=== PATIENT | male | born 1960 | race Caucasian/White ===

== ENCOUNTER 2019-02-27 19:26 | Emergency (ER) | payer BC ==
--- OUTSIDE RECORDS SUMMARY | 2019-02-27 19:29 | XMS REPORT ---
:1960 Author Organization eClinicalWorks Care Team Providers Name Role Phone Hai Ramon Provider Role Unavailable Allergies No Known Allergies Problems Problem Type Condition Code Onset Dates Condition Status Assessment Migraine without aura and without G43.009 Active status migrainosus, not intractable Assessment Hyperlipidemia, mixed E78.2 Active Assessment Depression F32.9 Active Assessment Allergic conjunctivitis H10.10 Active Problem Allergic conjunctivitis H10.10 Active Problem Hyperlipidemia, mixed E78.2 Active Problem Depression F32.9 Active Problem Migraine without aura and without G43.009 Active status migrainosus, not intractable Problem Diverticulosis of colon without K57.30 Active diverticulitis Problem Colon polyp K63.5 Active Problem Internal hemorrhoids K64.8 Active Medications Medication Code Code Instructions Start End Status Dosage System Date Date Niacin [facility] 36783685102 250 MG Orally Active 1 tablet Once a day with food Simvastatin [facility] 95302366703 40 MG Orally Active 1 tablet Once a day in the evening Magnesium [facility] 68866459050 500 MG Orally Active 1 tablet Once a day with a meal Aspirin [facility] [address]-90 Active not defined Excedrin Extra [facility] [address]-87 Active not Strength defined CoQ-10 [facility] 16185473212 100 MG Orally Active 1 capsule Once a day with a meal Calcium [facility] 75519700092 500 MG Orally Active not defined Vitamin B2 ND 0 Active not defined Imitrex [facility] 69032379228 100 MG Orally Active 1 tablet Twice a day as needed Simvastatin [facility] 09329210892 80 MG Orally Active 1 tablet Once a day in the evening Results No Known Results Summary Purpose eClinicalWorks Submission
--- OUTSIDE RECORDS SUMMARY | 2019-02-27 19:29 | XMS REPORT ---
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
--- OUTSIDE RECORDS SUMMARY | 2019-02-27 19:29 | XMS REPORT ---
:1960 [facility] Address [address] [place] [address] Dr. Pacheco [address] [place] [address] Care Team Providers Name Role Phone SIERRA DYSON Unavailable Unavailable Problems This patient has no known problems. Allergies, Adverse Reactions, Alerts This patient has no known allergies or adverse reactions. Medications This patient has no known medications. Results Test Description Test Time Test Comments Text Results Atomic Results Result Comments TISSUE EXAM 2019-02-03 13:39:00 Surgical Pathology Report Case: [id number] Authorizing Provider: Sierra Dyson MD Collected: 01/29/2019 1521 Ordering Location: [facility] Received: 02/01/2019 0822 SERVICES Pathologist: Xiomara Jaurez MD Specimens: A) - Polyp, Colon - Left/Descending, Descending Colon Polyp with Cold Snare B) - Polyp, Colon - Cecum, Cecum Polyp C) - Polyp, Colon - Right/Ascending, Ascending Colon Polyp D) - Polyp, Colon - Transverse, Transverse Colon Polyp with Cold Snare E) - Polyp, Colon - Left/Descending, Descending Colon Polyp # 2 A. LEFT DESCENDING COLON POLYP, COLD SNARE POLYPECTOMY: - TUBULAR ADENOMAB. CECUM POLYP, BIOPSY: - FRAGMENTS OF TUBULAR ADENOMA WITH FOCAL HIGH-GRADE DYSPLASIA C. RIGHT ASCENDING COLON POLYP, BIOPSY: - TUBULAR ADENOMA D. TRANSVERSE COLON POLYP, COLD SNARE POLYPECTOMY: - FRAGMENTS OF TUBULAR ADENOMA E. LEFT DESCENDING COLON POLYP #2, BIOPSY: - INFLAMMATORY POLYP WITH SURFACE ULCERATION, GRANULATION TISSUE AND SURFACE HYPERPLASTIC CHANGE - NEGATIVE FOR DYSPLASIA OR VIRAL CYTOPATHIC EFFECT Signing Pathologist Direct Phone Line: [phone] signed by Ximoara Juarez MD on 02/03/2019 at 1:39 PMEndoscopic report reviewed./[id number] s4Fjwnn of colon, unspecified part of colon, unspecified typeA. Descending colon polyp with cold snare. B. Cecum polyp. C. Ascending colon polyp. D. Transverse colon polyp with cold snare. E. Descending colon polyp #2Part A. Received in formalin labeled with the patient's name, accession number and "polyp, colon-left/descending" is a 0.4 cm pink polyp, which is submitted in toto in A1.Part B. Received in formalin labeled with the patient's name, accession number and "polyp, colon-cecum" are two irregular nowak soft tissue fragments each measuring 0.3 cm, which are submitted in toto in B1. Part C. Received in formalin labeled with the patient's name, accession number and "polyp, colon-right/ascending" is a 0.5 cm nowak polyp, which is submitted in toto in C1.Part D. Received in formalin labeled with the patient's name, accession number and "polyp, colon-transverse" is a 0.5 x 0.5 x 0.1 cm nowak polypoid soft tissue, which is bisected and entirely submitted in D1.Part E. Received in formalin labeled with the patient's name, accession number and "polyp, colon-left/descending" is a 0.3 cm nowak soft tissue fragment, which is bisected and entirely submitted in E1. CG/ew Performed
--- OUTSIDE RECORDS SUMMARY | 2019-02-27 19:29 | XMS REPORT ---
:1960 Author Organization eClinicalWorks Care Team Providers Name Role Phone Hai Ramon Provider Role Unavailable Allergies, Adverse Reactions, Alerts Substance Reaction Event Type N.K.D.A. Info Not Available Non Drug Allergy Problems Problem Type Condition Code Onset Dates Condition Status Assessment Hyperlipidemia, mixed E78.2 Active Problem Migraine without aura and without G43.009 Active status migrainosus, not intractable Assessment Adult BMI 30.0-30.9 kg/sq m Z68.30 Active Assessment Depression F32.9 Active Assessment Allergic conjunctivitis H10.10 Active Assessment Migraine without aura and without G43.009 Active status migrainosus, not intractable Problem Diverticulosis of colon without K57.30 Active diverticulitis Problem Depression F32.9 Active Problem Adult BMI 30.0-30.9 kg/sq m Z68.30 Active Problem Colon polyp K63.5 Active Problem Internal hemorrhoids K64.8 Active Problem Allergic conjunctivitis H10.10 Active Problem Hyperlipidemia, mixed E78.2 Active Medications Medication Code Code Instructions Start End Status Dosage System Date Date Vitamin B2 NDC 0 Active not defined Calcium [facility] 94263383277 500 MG Orally Active not defined Simvastatin ND 57231416372 80 MG Orally Active 1 tablet Once a day in the evening Niacin [facility] 56237692483 250 MG Orally Active 1 tablet Once a day with food CoQ-10 [facility] 57977642283 100 MG Orally Active 1 capsule Once a day with a meal Aspirin [facility] [address]-16 [place] not [place] [address]-09 Active not Strength defined Imitrex [facility] 80844598090 100 MG Orally Active 1 tablet Twice a day as needed Magnesium [facility] 60176844365 500 MG Orally Active 1 tablet Once a day with a meal Results No Known Results Summary Purpose eClinicalWorks Submission
--- OUTSIDE RECORDS SUMMARY | 2019-02-27 19:29 | XMS REPORT | Clinical Summary ---
:1960 Author Organization [facility] Address [address] [place] [address] Care Team Providers Name Role Phone Ramon Valles DO Primary Care Provider Allergies No Known Allergies Medications Medication Sig Dispensed Refills Start Date End Date Status simvastatin (ZOCOR) 80 Take 80 mg by 0 Active MG tablet mouth nightly. aspirin 81 MG EC tablet Take 81 mg by 0 Active mouth daily. Active Problems Not on file Encounters Date Type Specialty Care Team Description 01/29/2019 Anesthesia Event Mary Sesay CRNA 01/29/2019 Surgery Sierra Dyson COLONOSCOPY,POLYPECT MD TEQUILA Quintanilla 01/29/2019 Hospital Encounter Sierra Dyson MD 01/28/2019 Hospital Encounter Pre-Admission Sierra Dyson MD after 02/26/2018 Social History Tobacco Use Types Packs/Day Years Used Date Never Smoker Smokeless Tobacco: Never Used Alcohol Use Drinks/Week oz/Week Comments No Alcohol Habits Answer Date Recorded How often do you have a drink containing alcohol? Never 01/28/2019 How many drinks containing alcohol do you have on a typical Not asked day when you are drinking? How often do you have six or more drinks on one occasion? Not asked Sex Assigned at Date Recorded Not on file Job Start Date Occupation Industry Not on file Not on file Not on file Travel History Travel Start Travel End No recent travel history available. Last Filed Vital Signs Vital Sign Reading Time Taken Blood Pressure 110/69 01/29/2019 4:20 PM CDT Pulse 61 01/29/2019 4:20 PM CDT Temperature 36.1 C (97 F) 01/29/2019 3:55 PM CDT Respiratory Rate 20 01/29/2019 4:20 PM CDT Oxygen Saturation 99% 01/29/2019 4:20 PM CDT Inhaled Oxygen Concentration - - Weight 92.5 kg (204 lb) 01/29/2019 12:51 PM CDT Height 179.1 cm (5' 10.5") 01/29/2019 12:51 PM CDT Body Mass Index 28.86 01/29/2019 12:51 PM CDT Plan of Treatment Not on file Procedures Procedure Name Priority Date/Time Associated Diagnosis Comments REPORT OF 01/29/2019 3:56 PROCEDURE - PM CDT ENDOSCOPY URL TISSUE EXAM AP Routine 01/29/2019 3:21 Results for this PM CDT procedure are in the results section. COLONOSCOPY,POLYPE 01/29/2019 3:00 Polyp of colon, CTOMY PM CDT unspecified part of colon, unspecified type after 02/26/2018 Results REPORT OF PROCEDURE - ENDOSCOPY URL (01/29/2019 3:56 PM CDT) Narrative Performed At Tissue Exam (01/29/2019 3:21 PM CDT) Case Report Surgical Pathology Report Case: [id number] [facility] Authorizing Provider:Sierra Dyson MDCollected: 01/29/[address] [place] [address] Ordering Location: [facility] Received: 02/01/2019 0822 SERVICES Pathologist: Xiomara Juarez MD Specimens: A) - Polyp, Colon - Left/Descending, Descending Colon Polyp with Cold Snare B) - Polyp, Colon - Cecum, Cecum Polyp C) - Polyp, Colon - Right/Ascending, Ascending Colon Polyp D) - Polyp, Colon - Transverse, Transverse Colon Polyp with Cold Snare E) - Polyp, Colon - Left/Descending, Descending Colon Polyp # 2 DIAGNOSIS A. LEFT DESCENDING COLON POLYP, COLD SNARE POLYPECTOMY: [facility] - [facility] B. CECUM POLYP, BIOPSY: - FRAGMENTS OF TUBULAR [...] CYTOPATHIC EFFECT Signing Pathologist Direct Phone Line: [phone] COMMENT Endoscopic report reviewed. [facility] CPT Code(s) SJ/ew [facility] [address] x5 [facility] CLINICAL HISTORY Polyp of colon, unspecified [facility] part of colon, unspecified [facility] type SPECIMEN SOURCE A. Descending colon polyp [facility] with cold snare. B. Cecum [facility] polyp. C. Ascending colon polyp. D. Transverse colon polyp with cold snare. E. Descending colon polyp #2 GROSS DESCRIPTION Part A. Received in formalin labeled with the patient's name , accession number and "polyp, colon-left/descending" is a 0.4 cm pink polyp, which is submitted in toto in A1. [facility] Part B. Received in formalin labeled with the patient's name, accession number and "polyp, colon-cecum" are two irregular nowak soft tissue fragments each measuring 0.3 cm, which are submitted in toto in B1. Part C. Received in formalin labeled with the patient's name, accession number and "polyp, colon-right/ascending" is a 0.5 cm nowak polyp, which is submitted in toto in C1. Part D. Received in formalin labeled with the patient's name, accession number and "polyp, colon-transverse" is a 0.5 x 0.5 x 0.1 cm nowak polypoid soft tissue, which is bisected and entirely submitted in D1. Part E. Received in formalin labeled with the patient's name, accession number and "polyp, colon-left/descending" is a 0.3 cm nowak soft tissue fragment, which is bisected and entirely submitted in E1. CG/ew MICROSCOPIC DESCRIPTION Performed [facility] Specimen Tissue - Polyp, Colon - Left/Descending Tissue - Polyp, Colon - Cecum Tissue - Polyp, Colon - Right/Ascending Tissue - Polyp, Colon - Transverse Tissue - Polyp, Colon - Left/Descending Performing Organization Address City/State/Zipcode Phone Number [facility] [address] [place] [address] CENTER after 02/26/2018 Insurance Payer Benefit Plan / Subscriber ID Type Phone Address Group BLUE CROSS/BLUE [employer]BS HMO xxxxxxxxxxxx HMO/POS [phone] [address] [place] [address]
--- OUTSIDE RECORDS SUMMARY | 2019-02-27 19:29 | XMS REPORT ---
[...] Start End Status Dosage System Date Date Aspirin [facility] [address]-80 Active not defined Magnesium [facility] 88947384789 500 MG Orally Active 1 tablet Once a day with a meal Vitamin B2 ND 0 Active not defined CoQ-10 [facility] 95501743143 100 MG Orally Active 1 capsule Once a day with a meal Excedrin Extra [facility] [address]-12 Active not Strength defined Simvastatin ND 54786175623 80 MG Orally Active 1 tablet Once a day in the evening Imitrex ND 54485354759 100 MG Orally Active 1 tablet Twice a day as needed Calcium ND 46936877274 500 MG Orally Active not defined Niacin [facility] 55301775982 250 MG Orally Active 1 tablet Once a day with food Results No Known Results Summary Purpose eClinicalWorks Submission
--- OUTSIDE RECORDS SUMMARY | 2019-02-27 19:29 | XMS REPORT ---
:1960 Author Organization eClinicalWorks Care Team Providers Name Role Phone Ramon Valles Provider Role Unavailable Allergies No Known Allergies Problems Problem Type Condition Code Onset Dates Condition Status Problem Allergic conjunctivitis H10.10 Active Problem Hyperlipidemia, mixed E78.2 Active Problem Depression F32.9 Active Problem Migraine without aura and without G43.009 Active status migrainosus, not intractable Problem Diverticulosis of colon without K57.30 Active diverticulitis Problem Colon polyp K63.5 Active Problem Internal hemorrhoids K64.8 Active Medications No Known Medications Results No Known Results Summary Purpose [employer] Submission
--- OUTSIDE RECORDS SUMMARY | 2019-02-27 19:29 | XMS REPORT ---
:1960 Author Organization eClinicalWorks Care Team Providers Name Role Phone Hai Ramon Provider Role Unavailable Allergies, Adverse Reactions, Alerts Substance Reaction Event Type N.K.D.A. Info Not Available Non Drug Allergy Problems Problem Type Condition Code Onset Dates Condition Status Assessment Well adult on routine health check Z00.00 Active Problem Migraine without aura and without G43.009 Active status migrainosus, not intractable Problem Diverticulosis of colon without K57.30 Active diverticulitis Problem Depression F32.9 Active Problem Adult BMI 30.0-30.9 kg/sq m Z68.30 Active Problem Colon polyp K63.5 Active Problem Internal hemorrhoids K64.8 Active Problem Allergic conjunctivitis H10.10 Active Problem Hyperlipidemia, mixed E78.2 Active Assessment Migraine without aura and without G43.009 Active status migrainosus, not intractable Assessment Hyperlipidemia, mixed E78.2 Active Assessment Depression F32.9 Active Assessment Screen for colon cancer Z12.11 Active Assessment Allergic conjunctivitis H10.10 Active Assessment Adult BMI 30.0-30.9 kg/sq m Z68.30 Active Medications Medication Code Code Instructions Start End Status Dosage System Date Date Excedrin Extra [facility] [address]-96 Active not Strength defined Niacin [facility] 01544050112 250 MG Orally Active 1 tablet Once a day with food CoQ-10 [facility] 71207827779 100 MG Orally Active 1 capsule Once a day with a meal Calcium ND 87190251254 500 MG Orally Active not defined Aspirin [facility] [address]-83 Active not defined Simvastatin [facility] 32777785523 80 MG Orally Active 1 tablet Once a day in the evening Imitrex [facility] 13283921416 100 MG Orally Active 1 tablet Twice a day as needed Vitamin B2 ND 0 Active not defined Magnesium [facility] 72070700128 500 MG Orally Active 1 tablet Once a day with a meal Results No Known Results Summary Purpose eClinicalWorks Submission
[2019-02-27] MEDS ORDERED: NA CHLORIDE 0.9% 250 ML ONE (19:54)
[2019-02-27] MEDS ORDERED: ONDANSETRON 4 MG/2 ML VIAL ONE (19:54)
[2019-02-27] MEDS ORDERED: PANTOPRAZOLE 40 MG INJ ONE (19:54)
[2019-02-27 20:12] LABS: Basophils % 0.4 % (0-1.3); Hematocrit 47.3 % (39.6-49.0); Lymphocytes % 29.4 % (15.3-44.8); MPV 8.4 fL (7.6-11.3); RBC Red Blood Cell Count 5.13 M/uL (4.33-5.43)
[2019-02-27 20:20] LABS: Albumin 3.8 g/dL (3.4-5.0); Bilirubin Direct 0.2 mg/dL (0-0.2); Bilirubin Total 0.6 mg/dL (0.2-1.0); Potassium 3.7 mmol/L (3.5-5.1); Protein, Total 8.1 g/dL (6.4-8.2)
--- NOTE | 2019-02-27 20:54 | RAD REPORT ---
EXAM DESCRIPTION: CT - Abdomen Pelvis W Contrast - 02/27/2019 8:36 pm CLINICAL HISTORY: Abdominal pain COMPARISON: none. TECHNIQUE: Computed axial tomography of the abdomen pelvis was obtained. 100 cc Isovue-300 was admin istered intravenously. Oral contrast was not requested which limits evaluation of bowel. All CT scans are performed using dose optimization technique as appropriate and may include automated exposure control or mA/KV adjustment according to patient size. FINDINGS: Wall of the distal stomach is thickened. Multiple hepatic cysts. Largest measures 25 millimeters Spleen, pancreas and adrenals unremarkable. 7 centimeter left renal cystic mass contains a septation. 1.5 centimeter cystic mass within the left kidney contains several small calcifications probably a caliceal diverticulum. Small additional renal cysts. Colonic diverticulosis. Minimal stranding adjacent to the proximal sigmoid colon. Small inguinal hernias contain fat. Tiny umbilical hernia. Small hiatal hernia IMPRESSION: Thickening of the wall of the distal stomach may indicate pathology such as gastritis or less likely a mass. Follow-up recommended Minimal sigmoid diverticulosis 7 centimeter left renal cystic mass containing a septation likely benign. Followup renal ultrasound i n 6 months recommended for re-evaluation Probable 1.5 centimeter left renal calyceal diverticulum containing couple of small calculi
--- NOTE | 2019-02-27 21:27 | ER ---
Nurse's Notes [facility] Name: Vick Orantes Age: 58 yrs Sex: Male : 1960 Arrival Date: 02/27/2019 Time: 19:30 Bed 6 Private MD: Ramon Valles Diagnosis: Hematemesis Presentation: 02/27 19:40 Presenting complaint: Patient states: Reports he started feeling nauseous, had a ea headache. Pt reports one episode of bright red emesis today. Transition of care: patient was not received from another setting of care. Onset of symptoms was February 27, 2019. Risk Assessment: Do you want to hurt yourself or someone else? Patient reports no desire to harm self or others. Initial Sepsis Screen: Does the patient meet any 2 criteria? No. Patient's initial sepsis screen is negative. Does the patient have a suspected source of infection? No. Patient's initial sepsis screen is negative. Care prior to arrival: None. 19:40 Method Of Arrival: Ambulatory ea 19:40 Acuity: ELVIS 3 ea Historical: - Allergies: 19:50 No Known Allergies; rv - Home Meds: 19:50 aspirin 81 mg Oral chew 1 tab once daily [Active]; Simvastatin Oral [Active]; rv - PMHx: 19:50 Hyperlipidemia; rv - Immunization history:: Adult Immunizations up to date. - Social history:: Smoking status: Patient/guardian denies using tobacco. - Ebola Screening: : No symptoms or risks identified at this time. - Family history:: not pertinent. - Hospitalizations: : No recent hospitalization is reported. Screenin:41 Abuse screen: Denies threats or abuse. Nutritional screening: No deficits noted. ea Tuberculosis screening: No symptoms or risk factors identified. Fall Risk None identified. Assessment: 20:00 General: Appears in no apparent distress. comfortable, Behavior is calm, cooperative. ea Pain: Denies pain. Neuro: Level of Consciousness is awake, alert, obeys commands, Oriented to person, place, time, situation. Cardiovascular: Patient's skin is warm and dry. Respiratory: Airway is patent. GI: Reports hematemesis. : No signs and/or symptoms were reported regarding the genitourinary system. EENT: No signs and/or symptoms were reported regarding the EENT system. Derm: Skin is intact. Musculoskeletal: No signs and/or symptoms reported regarding the musculoskeletal system. 20:17 Reassessment: Patient and/or family updated on plan of care and expected duration. Pain ea level reassessed. Patient is alert, oriented x 3, equal unlabored respirations, skin warm/dry/pink. Awaiting on lab results. 21:06 Reassessment: Patient and/or family updated on plan of care and expected duration. Pain ea level reassessed. Patient is alert, oriented x 3, equal unlabored respirations, skin warm/dry/pink. Awaiting on CT results. Vital Signs: 19:42 BP 139 / 90; Pulse 62; Resp 18; Temp 98; Pulse Ox 97% ; ea 19:48 Weight 95.25 kg; Height 5 ft. 10 in. (177.80 cm); rv 20:18 BP 126 / 89; Pulse 60; Resp 18; Pulse Ox 97% on R/A; ea 21:16 BP 117 / 71; Pulse 61; Resp 18; Pulse Ox 97% on R/A; ea 19:48 Body Mass Index 30.13 (95.25 kg, 177.80 cm) rv ED Course: 19:30 Patient arrived in ED. mr 19:30 Ramon Valles, is Private Physician. mr 19:33 Karan Guy, STEPHEN is Primary Nurse. rv 19:35 Willy Patterson MD is Attending Physician. rn 19:38 Patient has correct armband on for positive identification. Bed in low position. Call ea light in reach. Side rails up X 1. 19:38 Arm band placed on right wrist. Patient placed in an exam room, on a stretcher, on ea pulse oximetry. 19:41 Triage completed. ea 19:49 Radiology exam delayed due to lab results not completed at this time. (BUN/Creatinine). mw3 19:55 Inserted saline lock: 20 gauge in right forearm, using aseptic technique. Blood ea collected. 19:55 Initial lab(s) drawn, by me, sent to lab. ea 20:36 CT Abd/Pelvis - IV Contrast Only In Process Unspecified. EDMS 20:36 CT completed. Patient tolerated procedure well. Patient moved back from CT. bq 21:26 González Maria MD is Referral Physician. rn 21:34 No provider procedures requiring assistance completed. IV discontinued, intact, rv bleeding controlled, No redness/swelling at site. Pressure dressing applied. Administered Medications: 20:03 Drug: Zofran 4 mg Route: IVP; Site: right forearm; ea 21:06 Follow up: Response: No adverse reaction ea 20:05 Drug: ProTONIX 40 mg Route: IVP; Site: right forearm; ea 21:06 Follow up: Response: No adverse reaction ea 20:05 Drug: ProTONIX 8 mg/hr Route: IV; Rate: 25 ml/hr; Site: right forearm; ea 21:33 Follow up: IV Status: Order to discontinue infusion rv Outcome: 21:26 Discharge ordered by . rn 21:34 Discharged to home ambulatory. rv 21:34 Condition: good 21:34 Discharge instructions given to patient, Instructed on discharge instructions, follow up and referral plans. medication usage, Demonstrated understanding of instructions, follow-up care, medications, Prescriptions given X 2. 21:34 Patient left the ED. rv Signatures: Dispatcher [employer] EDVT Melody Rhodes Betty bq Nieto, Roman, MD MD rn Antunez, Elena, RN RN ea Willis, Michelle mw3 Karan Guy RN RN rv
--- NOTE | 2019-02-27 21:28 | EDPHYS ---
Physician Documentation [facility] Name: Vick Orantes Age: 58 yrs Sex: Male : 1960 Arrival Date: 02/27/2019 Time: 19:30 Bed 6 Private MD: Ramon Valles ED Physician Willy Patterson HPI: 02/27 19:50 This 58 yrs old Male presents to ER via Ambulatory with complaints of rn Vomiting Blood. 19:50 The patient presents to the emergency department vomiting blood, a small amount, bright rn red, in a single episode. Onset: The symptoms/episode began/occurred just prior to arrival. Abdominal pain: none is appreciated. Modifying factors: The symptoms are alleviated by nothing, the symptoms are aggravated by nothing. Severity of symptoms: At their worst the symptoms were mild in the emergency department the symptoms are unchanged. The patient has not experienced similar symptoms in the past. Reports nausea, anorexia, threw up small amount of bright red blood [employer], otherwise feels ok, no known liver problems, + intermittent acid reflux, no trauma, last BM yesterday and not tarry black. . Historical: - Allergies: 19:50 No Known Allergies; rv - Home Meds: 19:50 aspirin 81 mg Oral chew 1 tab once daily [Active]; Simvastatin Oral [Active]; rv - PMHx: 19:50 Hyperlipidemia; rv - Immunization history:: Adult Immunizations up to date. - Social history:: Smoking status: Patient/guardian denies using tobacco. - Ebola Screening: : No symptoms or risks identified at this time. - Family history:: not pertinent. - Hospitalizations: : No recent hospitalization is reported. ROS: 19:50 Constitutional: Negative for fever, chills, and weight loss, ENT: Negative for injury, rn pain, and discharge, Neck: Negative for injury, pain, and swelling, Cardiovascular: Negative for chest pain, palpitations, and edema, Respiratory: Negative for shortness of breath, cough, wheezing, and pleuritic chest pain, Abdomen/GI: Negative for abdominal pain, diarrhea, and constipation, MS/Extremity: Negative for injury and deformity, Skin: Negative for injury, rash, and discoloration, Neuro: Negative for headache, weakness, numbness, tingling, and seizure. Exam: 19:50 Constitutional: This is a well developed, well nourished patient who is awake, alert, rn and in no acute distress. Ambulatory to room without difficulty or assistance. Head/Face: Normocephalic, atraumatic. Eyes: Pupils equal round and reactive to light, extra-ocular motions intact. Lids and lashes normal. Conjunctiva and sclera are non-icteric and not injected. Cornea within normal limits. Periorbital areas with no swelling, redness, or edema. ENT: MMM, no oral trauma or bleeding Cardiovascular: Regular rate and rhythm. No pulse deficits. Respiratory: No increased work of breathing, no retractions or nasal flaring. Abdomen/GI: soft, non-tender Skin: Warm, dry MS/ Extremity: Pulses equal, no cyanosis. Neurovascular intact. Full, normal range of motion. Equal circumference. Neuro: Awake and alert, GCS 15, oriented to person, place, time, and situation. Cranial nerves II-XII grossly intact. Motor strength 5/5 in all extremities. Sensory grossly intact. Cerebellar exam normal. Normal gait. Vital Signs: 19:42 BP 139 / 90; Pulse 62; Resp 18; Temp 98; Pulse Ox 97% ; ea 19:48 Weight 95.25 kg; Height 5 ft. 10 in. (177.80 cm); rv 20:18 BP 126 / 89; Pulse 60; Resp 18; Pulse Ox 97% on R/A; ea 21:16 BP 117 / 71; Pulse 61; Resp 18; Pulse Ox 97% on R/A; ea 19:48 Body Mass Index 30.13 (95.25 kg, 177.80 cm) rv MDM: 19:35 Patient medically screened. rn 21:24 Differential diagnosis: gastritis, ulceration, gastric mass. Data reviewed: vital rn signs, nurses notes, lab test result(s), radiologic studies, CT scan, and as a result, I will discharge patient. Counseling: I had a detailed discussion with the patient and/or guardian regarding: the historical points, exam findings, and any diagnostic results supporting the discharge/admit diagnosis, lab results, radiology results, the need for outpatient follow up, to return to the emergency department if symptoms worsen or persist or if there are any questions or concerns that arise at home. Response to treatment: the patient's symptoms have markedly improved after treatment, and as a result, I will discharge patient. ED course: Pt improved, no further episodes of hematemesis, normal vitals, normal h/h, normal BUN. CT shows thickening of distal wall of stomach, possibly gastritis/ulceration/mass. Had long discussion with patient, offered transfer since we dont have GI available, patient declines, risks and benefits explained and patient decides to go home, monitor symptoms, told him low threshold to return or seek emergency care and emergent EGD, understands. . 02/27 19:45 Order name: Basic Metabolic Panel; Complete Time: 20:33 rn 02/27 19:45 Order name: CBC with Diff; Complete Time: 20:33 rn 02/27 19:45 Order name: Creatinine for Radiology; Complete Time: 20:33 rn 02/27 19:45 Order name: Hepatic Function; Complete Time: 20:33 rn 02/27 19:45 Order name: Lipase; Complete Time: 20:33 rn 02/27 19:45 Order name: Type And Screen rn 02/27 19:45 Order name: IV Saline Lock; Complete Time: 20:00 rn 02/27 19:45 Order name: Labs collected and sent; Complete Time: 20:00 rn 02/27 19:45 Order name: CT Abd/Pelvis - IV Contrast Only; Complete Time: 21:05 rn Administered Medications: 20:03 Drug: Zofran 4 mg Route: IVP; Site: right forearm; ea 21:06 Follow up: Response: No adverse reaction ea 20:05 Drug: ProTONIX 40 mg Route: IVP; Site: right forearm; ea 21:06 Follow up: Response: No adverse reaction ea 20:05 Drug: ProTONIX 8 mg/hr Route: IV; Rate: 25 ml/hr; Site: right forearm; ea 21:33 Follow up: IV Status: Order to discontinue infusion rv Disposition: 02/27/19 21:26 Discharged to Home. Impression: Hematemesis. - Condition is Stable. - Discharge Instructions: Gastrointestinal Bleeding, Hematemesis. - Prescriptions for Zofran ODT 4 mg Oral tablet,disintegrating - place 1 tablet by TRANSLINGUAL route every 8 hours As needed; 20 tablet. Protonix 40 mg Oral Tablet - take 1 tablet by ORAL route once daily; 30 tablet. - Medication Reconciliation Form, Thank You Letter, Antibiotic Education, Prescription Opioid Use form. - Follow up: González Maria MD; When: As needed; Reason: Recheck today's complaints, Re-evaluation by your physician. - Problem is new. - Symptoms have improved. Signatures: Dispatcher [employer] EDWilly Berg MD MD rn Antunez, Elena RN Karan Reyes ea RN RN rv Corrections: (The following items were deleted from the chart) 21:34 21:26 02/27/2019 21:26 Discharged to Home. Impression: Hematemesis. Condition is rv Stable. Forms are Medication Reconciliation Form, Thank You Letter, Antibiotic Education, Prescription Opioid Use. Follow up: González Maria; When: As needed; Reason: Recheck today's complaints, Re-evaluation by your physician. Problem is new. Symptoms have improved. rn
== END 2019-02-27 21:34 | disposition home or self-care (01) ==
LOC: ER 19:26
DX: K92.0 Hematemesis (principal)
CPT/HCPCS: 96365; 85025; 80048; 36415; 86900; 86850; 86901; 80076; 83690; 74177; 96375; 99284; Q9967; C9113; J2405

== ENCOUNTER 2023-06-06 06:17 | Day surgery (SDC) | payer BC ==
[2023-06-06] MEDS ORDERED: Ringers Lactate 1,000 ML IV ONE (06:35)
[2023-06-06 07:13] LABS: Potassium 4.9 mEq/L (3.5-5.1)
[2023-06-06] MEDS ORDERED: ONDANSETRON 4 MG/2 ML VIAL ONE (07:20)
[2023-06-06] MEDS ORDERED: propofoL 200 MG/20 ML VIAL IV ONE (07:20)
[2023-06-06] MEDS ORDERED: FENTANYL CITR 100 MCG/2 ML ONE (07:20)
[2023-06-06] MEDS ORDERED: LIDOCAINE 2% MPF 5 ML VIAL ONE (07:20)
[2023-06-06 07:24] LABS: Absolute Lymphocytes (CBC) 1.3 K/uL (0.7-4.9); Hematocrit 44.2 % (39.6-49.0); Lymphocytes % 30.6 % (15.3-44.8); MPV 8.3 fL (7.6-11.3); Platelets 196 thou/uL (152-406)
--- NOTE | 2023-06-06 07:29 | RAD REPORT ---
EXAM DESCRIPTION: Nicole Ruiz (2 Views)06/06/2023 6:51 am CLINICAL HISTORY: Preop COMPARISON: None FINDINGS: The lungs appear clear of acute infiltrate. The heart is normal size IMPRESSION: No acute abnormalities displayed
[2023-06-06] MEDS ORDERED: CEFAZOLIN SODIUM 1 GM/VIAL ONE (07:31)
[2023-06-06] MEDS ORDERED: dexAMETHasone 10 MG/ML VIAL ONE (07:42)
--- NOTE | 2023-06-06 08:25 | P.BOP ---
Preoperative diagnosis: infected back SubQ mass Postoperative diagnosis: same Primary procedure: Excisional biopsy of infected back SubQ mass 8x8cm Estimated blood loss: <10cc Specimen: mass, culture Findings: mass Anesthesia: General Complications: None Transferred to: Recovery Room Condition: Good
[2023-06-06 10:04] VITALS: BP 115/68; TEMP 97.6; O2SAT 97
--- NOTE | 2023-06-06 19:25 | DS ---
Date of Discharge: 06/06/2023 Diagnosis: Infected back subcutaneous mass. Procedure: Excisional biopsy of infected back subcutaneous mass. Disposition: Home. Activity: As tolerated. No heavy lifting. Plan: Follow up in my office in 1 week. Call for appointment at [phone]. Keep the area dry for 48 hours, then may shower and then may apply triple antibiotics and Band-Aid. YUMIKO Voice ID: [id number] Report ID: [id number]
--- NOTE | 2023-06-06 19:40 | OP ---
Date of Procedure: 06/06/2023 Surgeon: Merrick Cheatham MD Preoperative Diagnosis: Infected back subcutaneous mass. Postoperative Diagnosis: Infected back subcutaneous mass. Procedure: Excisional biopsy of infected back subcutaneous mass 8 x 8 cm. Estimated Blood Loss: Less than 10 mL. Specimens: Mass and culture. Findings: Mass as above. Anesthesia: General plus local. Indications: This is the case of a 62-year-old patient, who comes to us with an erythematous mass on the back. Yesterday, was seen by the primary doctor, fully explained the need for a surgical interv ention since it is increasing in size. We discussed versus excisional biopsy. He preferr ed excisional biopsy, understanding the benefits, alternatives, and risks of excisional biopsy, which include, but not limited to infection, bleeding, damage to adjacent structures, anesthesia complicat ion, nonhealing wound, NE, and even . He also understands this may not relieve any symptoms. H e might need more than one surgical intervention. He preferred not to be packed, but he understand a lso that if we pack today or even if we pack in the next few days, it is because of a second problem, which is the infection. He understood, signed the consent. Procedure In Detail: The area of concern was marked by me and the patient in the holding room. The patient was brought to the operating room, placed in supine position. Anesthesia was done without co mplication. The back area was prepped and draped in usual sterile fashion after the patient was plac ed in lateral decubitus position. A wedge incision was made in the skin. This goes all the way down to fascia of the muscle, does not include the muscle. The mass was completely excised. The area wa s profusely irrigated. Cultures were done. I did not see any brittani pus from that area. I noticed t he cellulitis, but we did profuse irrigation in that area and then proceed to close this in layers wi th 0 chromic in deep layers, mid layers 0 chromic, and then after that a mattress suture and 2-0 nylo n in the skin letting the skin to close in a combination of secondary intention. The lubna ent tolerated the procedure well. Sponge count and instrument counts were correct. Irrigation was d one before closure and also local anesthetic. The patient was sent to the recovery in stable conditi on. JARROD/GRZEGORZ Voice ID: [id number] Report ID: [id number]
--- NOTE | 2023-06-10 13:59 | EKG ---
Test Date: 2023-06-06 Test Time: 08:00:07 Creative Resource Manager: GILLES MEASUREMENT RESULTS: Intervals: Rate: 60 NH: 206 QRSD: 88 QT: 418 QTc: 418 [place]: P: 50 NH: 206 QRS: 70 T: 50 INTERPRETIVE STATEMENTS: Normal sinus rhythm Normal ECG No previous ECG available for comparison Electronically Signed On 06-10-23 13:44:21 PILLING MACHINE OPERATOR by Kehinde Maldonado
== END 2023-06-06 09:50 | disposition home or self-care (01) ==
LOC: OR 06:17
PROVIDERS: ATTEND Surgery
PROC: 0JB70ZZ Excision of Back Subcutaneous Tissue and Fascia, Open Approach (ICD-10-PCS; principal; 2023-06-06 07:30)
DX: L72.0 Epidermal cyst (principal); L03.312 Cellulitis of back [any part except buttock and flank]; E78.00 Pure hypercholesterolemia, unspecified; G43.909 Migraine, unspecified, not intractable, without status migrainosus
CPT/HCPCS: 93005; 87070; 85025; 80048; 36415; 87205; 88304; 87075; 71046; 11406; J2704; J2001; J3010; J1100; J2405; J7120; J0690; 88305